=== PATIENT | male | born 1975 | race African-American/Black ===

== ENCOUNTER 2023-10-07 14:55 | Emergency (ER) | payer MEDICAID ==
[~2023-10-07] VITALS: Ht 175.3 cm; Wt 80.0 kg
[2023-10-07 14:59] VITALS: O2SAT 99
[2023-10-07] MEDS ORDERED: AMOX1TAB16 MT (16:06)
[2023-10-07] MEDS: TETANUS, DIPHTHERIA, PERTUSSIS VAC/PF 0.5ML (>10YR OLD) IM ONE (16:18)
[2023-10-07 16:20] VITALS: BP 138/74; PULSE 71; RESP 17; TEMP 98.4
== END 2023-10-07 16:34 | disposition home or self-care (01) ==
LOC: ER 14:55
DX: S51.852A Open bite of left forearm, initial encounter (principal); F31.9 Bipolar disorder, unspecified; F20.9 Schizophrenia, unspecified; W54.0XXA Bitten by dog, initial encounter; Y93.89 Activity, other specified; Y92.89 Other specified places as the place of occurrence of the external cause; Y99.8 Other external cause status
CPT/HCPCS: 90715; 90471; 99283; Z7610